=== PATIENT | female | born 1955 | race Two or more races ===

== ENCOUNTER 2021-12-27 08:34 | Outpatient (CLI) | payer OTHER | END 2021-12-27 08:38 | disposition home or self-care (01) | LOC: MRI 08:34 → SONOGRAMA 08:34 | PROVIDERS: ATTEND Pathology Anatomic Pathology & Clinical Pathology | DX: E04.1 Nontoxic single thyroid nodule (principal); M25.562 Pain in left knee | CPT/HCPCS: 73718 ==